=== PATIENT | female | born 1995 | race Caucasian/White ===

== ENCOUNTER 2016-11-07 15:05 | Emergency (ER) | payer OTHER, MEDICAID ==
[2016-11-07] MEDS ORDERED: ADACEL TDaP IM ONE ×2 (15:24→15:29)
--- NOTE | 2016-11-07 15:27 | DR.GENAD ---
HPI - PCP Primary Care Physician: DR. BROWN - HPI Comment HPI Comment: As below; occurred earlier today but pt occasionally tugs at it, and it bleeds intermittently; no recent tetanus shot. - Complaint/Symptoms Chief Complaint:: PT'S FAMILY STATES " SHE FELL DOWN THE STEPS ON CEMENT AND SHE HAS A LACERATION TO THE RIGHT SIDE OF HER HEAD ".. FAMILY DENIES ANY LOC, .. BR - Source History Provided: Parent - Mode of Arrival Mode of Arrival: Ambulatory - Timing Onset of Chief Complaint: 11/07/16 PMH - PMH Past Medical History: Yes Past Medical History: Seizures Past Medical History Comment: MENTAL RETARDATION.. Past Surgical History: Yes Past Surgical History Comment: BIOPSY.. - Family History History of Family Medical Conditions: No - Social History Does patient currently use any type of tobacco product: No Have you used tobacco products in the last 12 months: No Type of Tobacco Use: None Does any household member use tobacco: No Alcohol Use: None Do you use any recreational Drugs:: No Lives With: Family Lives Where: Home - infectious screening In the last 2 months have you had wt loss of >10#?: NO Have you had fever, night sweats or hemotysis?: No Have you traveled outside the country in the last 6 months?: No Isolation: Standard ROS - Review of Systems Unable to Obtain Due To: Altered mental status (MR) PE - Vital Signs Vitals: Temperature 97.7 F Pulse Rate 80 Respiratory Rate 22 Blood Pressure [] 115/78 Blood Pressure [] 122/70 Blood Pressure 102/71 O2 Sat by Pulse Oximetry 98 - General Limitations: No Limitations General Appearance: Alert - Head Head Exam: Other (3 cm linear lac to posterior right occiput, bleeding controlled) - Eyes Eye exam: Normal Appearance - Neck Neck Exam: Normal Inspection - Respiratory Respiratory Exam: Normal Lung Sounds Bilat - Cardiovascular Cardiovascular Exam: Regular Rate, Normal Rhythm - Abdominal Exam Abdominal Exam: Normal Inspection, Normal Bowel Sounds - Neurologic Neurological Exam: Alert (wandering; nonverbal) Procedures - Laceration/Wound Repair Right Head Wound Length (cm): 3 (surgibond applied w/o incident) Wound Explored: clean Betadine Prep?: Yes Anesthesia: Other (none) - Diagnosis Discharge Problem: Laceration of skin of scalp Qualifiers: Encounter type: initial encounter Qualified Code(s): S01.01XA - Laceration without foreign body of scalp, initial encounter - Discharge Plan Disposition: HOME, SELF-CARE Condition: Stable - Follow ups/Referrals Follow ups/Referrals: ELIAZAR BROWN [Primary Care Provider] - 3 days - Instructions Instructions: Tissue Adhesive Wound Care
[2016-11-07 15:28] VITALS: BP 102/71; BMI 17.2
== END 2016-11-07 15:48 | disposition home or self-care (01) ==
LOC: ER 15:16
PROC: 0WQ00ZZ Repair Head, Open Approach (ICD-10-PCS; principal; 2016-11-07)
DX: S01.01XA Laceration without foreign body of scalp, initial encounter (principal); W10.9XXA Fall (on) (from) unspecified stairs and steps, initial encounter; Y92.9 Unspecified place or not applicable
CPT/HCPCS: 90471; 99282